=== PATIENT | female | born 1995 | race Caucasian/White ===

== ENCOUNTER 2016-07-12 | Emergency (ER) | payer OTHER | END 2016-07-12 01:25 | disposition home or self-care (01) | LOC: FER | DX: N93.9 Abnormal uterine and vaginal bleeding, unspecified (principal); R11.0 Nausea; M54.9 Dorsalgia, unspecified; I10 Essential (primary) hypertension; E66.9 Obesity, unspecified; Z88.8 Allergy status to other drugs, medicaments and biological substances; Z79.899 Other long term (current) drug therapy ==

== ENCOUNTER 2021-08-15 02:22 | Emergency (ER) | payer OTHER ==
[~2021-08-15 02:22] MED LIST: CIPRO500 MG PO; MACROBID100 MG PO
[2021-08-15 03:11] LABS: BILIRUBIN NEGATIVE (NEGATIVE); BLOOD 1+ Ery/uL (NEGATIVE); CLARITY CLEAR (CLEAR); COLOR YELLOW (YELLOW); GLUCOSE (U) NORMAL (NORMAL); LEUKOCYTES NEGATIVE Leu/uL (NEGATIVE); NITRITE POSITIVE (NEGATIVE); PROTEIN TRACE (LOW) mg/dL (NEGATIVE); SPECIFIC GRAVITY >=1.030 (1.001-1.030); UROBILINOGEN 0.2 mg/dL (0.2-1.0)
[2021-08-15 03:17] LABS: BASOPHIL 0.3 % (0-2); EOSINOPHIL 0.4 % (0-5); HCT 40.2 % (37.0-47.0); HGB 12.8 g/dl (12.5-16.0); MCH 28.8 pg (25.0-31.0); MCHC 31.8 g/dL (32.0-36.0); MCV 90.5 fL (78.0-100.0); MONOCYTE 5.2 % (0-12); MPV 10.3 fL (6.0-9.5); NEUTROPHIL 66.6 % (41-80); NRBC 0; PLT 335 K/uL (150-400); RBC 4.44 M/uL (4.20-5.40); RDW 12.8 % (11.5-14.0); WBC 17.9 K/uL (4.0-10.5)
[2021-08-15 03:20] LABS: BACTERIA 3+; URINARY RBC RARE; URINARY WBC 20-50
[2021-08-15 03:27] LABS: ALBUMIN 3.4 g/dL (3.4-5.0); BILIRUBIN - TOTAL 0.2 mg/dL (0.2-1.0); BUN/CREAT RATIO (CALC) 16.4 RATIO; CREATININE 0.67 mg/dL (0.51-0.95); GLOBULIN (CALCULATION) 4.2 g/dL; TOTAL PROTEIN 7.6 g/dL (6.4-8.2)
[2021-08-15] MEDS ORDERED: CEPHALEXIN500 M1 PO (03:43)
== END 2021-08-15 04:11 | disposition home or self-care (01) ==
LOC: FER 02:22
PROVIDERS: Internal Medicine
DX: O23.41 Unspecified infection of urinary tract in pregnancy, first trimester (principal); O10.911 Unspecified pre-existing hypertension complicating pregnancy, first trimester; O99.281 Endocrine, nutritional and metabolic diseases complicating pregnancy, first trimester; E78.5 Hyperlipidemia, unspecified; Z3A.01 Less than 8 weeks gestation of pregnancy; Z28.310 Unvaccinated for COVID-19; Z79.899 Other long term (current) drug therapy
CPT/HCPCS: 36415; 80053; 81001; 84702; 85025; 86900; 86901; 87088; 99284